=== PATIENT | female | born 1980 | race Caucasian/White ===

== ENCOUNTER 2016-11-16 16:51 | Inpatient (IN) | payer OTHER ==
--- NOTE | ~2016-11-16 | PN ---
Unit #: [id number] #: [id number] Patient: ALISA SOTO [id number] [facility] [address] [place] [address] [id number] I MR#: [id number] NAME: ALISA SOTO ROOM: [facility] Age: 36 Sex: F Admission Date: 11/16/2016 : 1980 Attending Physician: Jo-Ann Ríos M.D. Admitting Physician: Jo-Ann Ríos M.D. Primary Care Physician: Primary Care Physician Doris MENESES NOTES DATE November 17, 2016 DISCUSSION Ms. Soto is a 36-year-old white female, who was seen today and chart was reviewed and the case was discussed with the staff. The patient has been anxious, withdrawn, and rather seclusive to herself. Meanwhile, she has been complaining of persistent depression and anxiety, and feelings of hopelessness. MENTAL STATUS EXAMINATION Young white female, who was casually dressed with fair personal hygiene and appears to be in no acute distress or discomfort. The patient was awake and alert on interaction with intact orientation. Her mood is anxious and depressed with a congruent affect. She reports having suicidal ideations, but denies any homicidal ideations. Her insight and judgment remain slightly impaired. TREATMENT PLAN 1. We will continue her on her current medications and treatment protocol, and will monitor her response to the medications, and make further adjustments as needed. 2. We will continue to followup. Dictated by... Misael Hinton/taylor TD: 11/18/2016 05:24 JOB #: [id number] Unit #: [id number] #: [id number] Patient: ALISA SOTO PROGRESS NOTES Page 1 of 1 X Jo-Ann Ríos MD PROGRESS NOTE
--- NOTE | ~2016-11-16 | PN ---
Unit #: [id number] #: [id number] Patient: ALISA SOTO [id number] [facility] [address] [place] [address] [id number] I MR#: [id number] NAME: ALISA SOTO ROOM: [facility] Age: 36 Sex: F Admission Date: 11/16/2016 : 1980 Attending Physician: Jo-Ann Ríos M.D. Admitting Physician: Jo-Ann Ríos M.D. Primary Care Physician: Primary Care Physician Doris IRENE PROGRESS NOTES DATE 11/19/2016 DISCUSSION Ms. Soto is a 36-year-old white female with mood disorder who was seen today and chart was reviewed and case was discussed with the staff. She has been anxious, withdrawn, rather seclusive to herself though has been cooperative with treatment recommendations and has been taking medications and tolerating them fairly well with no reported side effects. MENTAL STATUS EXAMINATION Young white female who was casually dressed with fair personal hygiene and appears to be in no acute distress or discomfort. She was awake and alert on interaction with intact orientation. Her mood was anxious with congruent affect. She denies any suicidal or homicidal ideations and also denies any auditory or visual hallucinations. Her insight and judgement remains slightly impaired. TREATMENT PLAN 1. We will continue current medications and treatment protocol. Will monitor her response to the medications and make further adjustments as needed. 2. Will continue to follow up. Dictated by... Jo-Ann Ríos M.D. IAA/rikih TD: 11/19/2016 18:22 JOB #: [id number] Unit #: [id number] #: [id number] Patient: ALISA SOTO PROGRESS NOTES Page 1 of 1 X Jo-Ann Ríos MD PROGRESS NOTE
--- NOTE | ~2016-11-16 | PN ---
Unit #: [id number] #: [id number] Patient: ALISA SOTO [id number] [facility] [address] [place] [address] [id number] I MR#: [id number] NAME: ALISA SOTO ROOM: [facility] Age: 36 Sex: F Admission Date: 11/16/2016 : 1980 Attending Physician: Jo-Ann Ríos M.D. Admitting Physician: Jo-Ann Ríos M.D. Primary Care Physician: Primary Care Physician Doris MENESES NOTES DATE 11/18/2016 DISCUSSION Ms. Soto is a 26-year-old white female who was seen today and chart was reviewed and case was discussed with the staff. Patient has been anxious, withdrawn and rather seclusive to herself. She reports persistent depressive symptoms, anxiety and mood swings. Her medication was adjusted yesterday. MENTAL STATUS EXAMINATION Young white female who was casually dressed with fair personal hygiene and appears to be in no acute distress or discomfort. The patient was awake and alert on interaction with intact orientation. Mood was anxious with a congruent affect. Patient denies any suicidal or homicidal ideation. Her insight and judgment remain slightly impaired. TREATMENT PLAN Will continue on current medications and treatment protocol. We will monitor her response to medication and further adjustments as needed. We will continue to follow up. Dictated by... Misael Hinton/jocelin TD: 11/18/2016 12:51 JOB #: [id number] Unit #: [id number] #: [id number] Patient: ALISA SOTO PROGRESS NOTES Page 1 of 1 X Jo-Ann Ríos MD PROGRESS NOTE
--- NOTE | ~2016-11-16 | CO ---
Unit #: [id number] #: [id number] Patient: ALISA LAURENT [id number] [place] [address] [id number] I MR#: [id number] NAME: ALISA LAURENT ROOM: [facility] Age: 36 Sex: F Admission Date: 11/16/2016 : 1980 Attending Physician: Jo-Ann Ríos M.D. Primary Care Physician: Primary Care Physician No Consultation Date: 11/20/2016 CONSULTATION REPORT SUBJECTIVE Alisa is a 36-year-old with history of degenerative disk disease. She has complained of some low back pain. She denies any recent injury and has had no urgency, frequency, or dysuria. OBJECTIVE GENERAL: Alert, well nourished, in no apparent distress. VITAL SIGNS: Blood pressure 130/70, heart rate 80, respirations 16, temperature 98.6. ABDOMEN: Soft, nontender. BACK: Negative CVA tenderness. ASSESSMENT Low back pain, most likely osteoarthritis. PLAN Relafen 500 mg one p.o. b.i.d. Dictated by... Jose AndradeARodolfo. for Misael John/maisha TD: 11/20/2016 23:48 JOB #: [id number] CONSULTATION REPORT Page 1 of 1 X Bailee Goldstein CONSULTATION REPORT
--- NOTE | ~2016-11-16 | DS ---
Unit #: [id number] #: [id number] [facility]: [facility] [id number] [facility] [address] [place] [address] [id number] I MR#: [id number] NAME: ALISA SOTO ROOM: [facility] Age: 36 Sex: F Admission Date: 11/16/2016 : 1980 Discharge Date: Attending Physician: Jo-Ann Ríos M.D. Primary Care Physician: Primary Care Physician No DISCHARGE SUMMARY IDENTIFYING DATA Ms. Soto is a 36-year-old white female, who is a resident of [place], [place] and was self-referred to the hospital on a voluntary basis. DISCHARGE DIAGNOSES Psychiatric: Major depressive disorder, recurrent, moderate, without psychotic features; generalized anxiety disorder. Stressors: Moderate psychosocial stressors. HISTORY OF PRESENT ILLNESS Please see initial psychiatric evaluation for details. PAST PSYCHIATRIC HISTORY Please see initial psychiatric evaluation for details. PAST MEDICAL HISTORY Please see initial psychiatric evaluation for details. HOSPITAL COURSE The patient was admitted to the adult psychiatric unit at [facility] and was oriented to the hospital environment. Routine p.r.n. medications were initiated, and she was started back on her home medications, and Remeron was maintained, and Celexa 20 mg a day was added, and she was closely monitored. She was taking the medications regularly and was tolerating them fairly well and able to show a decent therapeutic response with improvement in depression and anxiety and was denying any further suicidal ideations, intent, or plan and was not seen to be danger to self or anyone else, and as such, it was decided that she will be discharged home and will continue treatment on an outpatient basis. DISCHARGE MEDICATIONS Celexa 20 mg a day for depression and Remeron 15 mg a day for depression. DISCHARGE CONDITION Stable. PROGNOSIS Fair. Dictated by... Jo-Ann Ríos M.D. Unit #: [id number] #: [id number] Patient: ALISA SOTO IAA/modl TD: 11/21/2016 07:12 JOB #: [id number] DISCHARGE SUMMARY Page 1 of 1 X Jo-Ann Ríos MD X DISCHARGE SUMMARY
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
--- NOTE | ~2016-11-16 | PN ---
Unit #: [id number] #: [id number] Patient: ALISA SOTO [id number] [facility] [address] [place] [address] [id number] MR#: [id number] NAME: ALISA SOTO ROOM: [facility] Age: 36 Sex: F Admission Date: 11/16/2016 : 1980 Attending Physician: Jo-Ann Ríos M.D. Admitting Physician: Jo-Ann Ríos M.D. Primary Care Physician: Primary Care Physician Doris MENESES NOTES DATE November 20, 2016 DISCUSSION Ms. Soto is a 36-year-old white female, with mood disorder, who was seen today and chart was reviewed and the case was discussed with the staff. She has been anxious, withdrawn, and rather seclusive to herself. Meanwhile, she has been taking the medications and tolerating them fairly well with no reported side effects. MENTAL STATUS EXAMINATION Young white female, who was casually dressed with fair personal hygiene and appears to be in no acute distress or discomfort. She was awake and alert on interaction with intact orientation. Her mood was anxious with a congruent affect. She denies any suicidal or homicidal ideations. Her insight and judgment remain slightly impaired. TREATMENT PLAN 1. We will continue her on her current medications and treatment protocol, and will monitor her response to the medications, and make further adjustments as needed. 2. We will continue to followup. Dictated by... Misael Hinton/taylor TD: 11/20/2016 11:15 JOB #: [id number] Unit #: [id number] #: [id number] Patient: ALISA SOTO PROGRESS NOTES Page 1 of 1 X Jo-Ann Ríos MD X PROGRESS NOTE
--- NOTE | ~2016-11-16 | HP ---
Unit #: [id number] #: [id number] Patient: ALISA LAURENT [id number] [place] [address] [id number] I MR#: [id number] NAME: ALISA LAURENT ROOM: [facility] Age: 36 Sex: F Admission Date: 11/16/2016 : 1980 Attending Physician: Jo-Ann Ríos M.D. Admitting Physician: Jo-Ann Ríos M.D. Primary Care Physician: Primary Care Physician No HISTORY AND PHYSICAL HISTORY OF PRESENT ILLNESS The patient is a 36-year-old female admitted to [address] [place] [address] on 11/16/2016 for depression. PAST MEDICAL HISTORY 1. Obesity 2. IBS 3. Herniated disc 4. Chiari malformation PAST SURGICAL HISTORY 1. Right ____ 2. Tonsillectomy 3. Uterine fibroid tumor removal SOCIAL HISTORY She is unemployed and homeless. She smokes one pack cigarettes daily. Denies alcohol and drug use. FAMILY HISTORY Medically noncontributory. ALLERGIES 1. Demerol 2. Dimetapp REVIEW OF SYSTEMS CONSTITUTIONAL: No fever or chills. HEENT: Denies any sore throat, ear pain or runny nose. CARDIOVASCULAR: Denies chest pain, irregular heart rhythm or palpitations. CHEST: Denies shortness of breath or cough. No hemoptysis. GASTROINTESTINAL: Denies nausea, vomiting, diarrhea or chronic constipation. ENDOCRINE: Denies history of increased thirst or urination. No recent significant weight loss or gain. GENITOURINARY: Denies dysuria, frequency, or hematuria. SKIN: Denies any rashes. HEMATOLOGIC: Denies history of increased bleeding or bruising. MUSCULOSKELETAL: Denies any hot, swollen joints. No generalized muscle pain. NEUROLOGIC: Denies problems with vision or speech. No frequent, severe headaches. No numbness, tingling or weakness in any extremities. Denies loss of bladder or bowel control. Unit #: [id number] #: [id number] Patient: ALISA LAURENT PHYSICAL EXAMINATION GENERAL: She is awake, alert, oriented, in no apparent distress. VITAL SIGNS: Temperature 97.7, heart rate 98, respirations 18, blood pressure 116/81. HEIGHT: 5 foot 6. WEIGHT: 200 pounds. SKIN: Warm and dry without rash or lesion. HEENT: Normocephalic. TMs not viewed. Oral and nasal passages clear. Conjunctivae clear. Pupils equal, round and reactive to light and accommodation. Extraocular movements intact. NECK: Supple without lymphadenopathy or thyromegaly. HEART: Regular rate and rhythm without murmur. LUNGS: Clear. ABDOMEN: Soft, nontender. : Not done. EXTREMITIES: No evidence of cyanosis, clubbing or edema. Moves all extremities without focal deficit. NEUROLOGICAL: Grossly within normal limits. Cranial Nerves: II: Visual patel are intact. III, IV AND : Extraocular movements are intact. Pupils are equal, round and reactive to light. V: Facial sensation is grossly normal. VII: Facial movements and expression are normal. VIII: Auditory acuity grossly intact. IX, X: Uvula is midline. Phonation is normal. XI: Patient shrugs shoulders and turns head normally. XII: Tongue protrudes in the midline. Sensory and Motor Function: Sensory and motor sensation is grossly normal. Motor: moves all extremities well. Coordination: Gait is normal. Deep Tendon Reflexes: Intact. IMPRESSION 1. Psychiatric admission 2. Obesity 3. IBS 4. Herniated disc 5. Chiari malformation RECOMMENDATIONS PSYCHIATRIC: Per psychiatrist. MEDICAL: I see no contraindications to participating in facility's activities. MEDICAL PROGNOSIS Good. MEDICAL CONDITION Stable. Dictated by... Luz Maria Castanon/tanja Unit #: [id number] #: [id number] Patient: ALISA LAURENT TD: 11/17/2016 21:48 JOB #: [id number] HISTORY AND PHYSICAL Page 1 of 1 X CEASAR YANG APRN X HISTORY AND PHYSICAL
[~2016-11-16 16:51] MED LIST: BENADRYL PO; FLEXERIL10 MG PO; LEVAQUIN PO; LORTAB 7.5-5001 TAB PO; MIRALAX17 G1 PO; PROAIR HFA8.5 GM INH; ROBITUSSIN A-C-S1 ML PO
[2016-11-17 11:03] LABS: BASOPHIL% 0.4 % (0-2.5); EOSINOPHIL# 0.1 X10e3 (0-0.7); EOSINOPHIL% 1.3 % (0.0-7.0); HEMATOCRIT 41.5 % (35.0-45.0); HEMOGLOBIN 13.6 gm/dL (12.0-16.0); LYMPHOCYTE# 2.3 X10e3 (1.0-3.5); MEAN CELL VOLUME 84.1 FL (83-96); MEAN CORPUSCULAR HEMOGLOBIN 27.6 PG (28-34); MEAN CORPUSCULAR HGB CONC 32.8 g/dL (30-36); MEAN PLATELET VOLUME 8.5 FL (6.5-11.5); MONOCYTE# 0.5 X10e3 (0-1.0); MONOCYTE% 5.8 % (3.0-12.0); NEUTROPHIL# 5.1 X10e3 (1.5-7.1); NEUTROPHIL% 63.5 % (40-75); PLATELET COUNT 321 X10e3 (140-420); RED BLOOD COUNT 4.93 X10e (3.90-5.30); RED CELL DISTRIBUTION WIDTH 14.3 % (11.0-15.5)
[2016-11-17 11:16] LABS: DIFF IND NO
[2016-11-17 11:35] LABS: ALBUMIN SERUM 3.5 g/dL (3.5-5.0); BILIRUBIN,TOTAL 0.7 mg/dL (0.2-2.0); CALCIUM SERUM 8.9 mg/dL (8.4-10.2); CREATININE SERUM 0.5 mg/dL (0.6-1.4); GLOM FILT RATE Estimated 122.8 mL/min (>60); PROTEIN TOTAL SERUM 6.4 g/dL (6.0-8.3)
[2016-11-19 12:42] LABS: URINE BILIRUBIN NEG (NEG); URINE BLOOD NEG (NEG); URINE COLOR YELLOW; URINE GLUCOSE NEG (NEG); URINE KETONE NEG (NEG); URINE LEUKOCYTE ESTERASE TRACE (NEG); URINE NITRATE NEG (NEG); URINE PROTEIN NEG (NEG); URINE SPECIFIC GRAVITY 1.016 (1.003-1.035); URINE UROBILINOGEN 0.2 MG/DL (NEG)
[2016-11-19 12:49] LABS: CULTURE INDICATED? YES; U HYALINE CASTS AUWI 0-2 /[LPF]; URINE BACTERIA AUWI 1+ (NEGATIVE); URINE SQUAMOUS EPITHELIAL CELL OCC /[HPF]
[2016-11-19 12:57] LABS: URINE APPEARANCE HAZY
[2016-11-19 18:36] LABS: AMPHETAMINE NEG (NEG); BARBITURATES NEG (NEG); BENZODIAZEPINES NEG (NEG); COCAINE NEG (NEG); MARIJUANA NEG (NEG); OPIATES NEG (NEG); TRICYCLIC ANTIDEPRESSANTS NEG (NEG); U METHADONE NEG (NEG)
== END 2016-11-21 10:00 | disposition home or self-care (01) | DRG 885 ==
LOC: P2L 16:51
PROVIDERS: Psychiatry & Neurology Psychiatry
DX: F33.1 Major depressive disorder, recurrent, moderate (principal); E66.9 Obesity, unspecified; F41.1 Generalized anxiety disorder; Z56.0 Unemployment, unspecified; Z59.0 Homelessness; K58.9 Irritable bowel syndrome, unspecified; M47.896 Other spondylosis, lumbar region
CPT/HCPCS: 80053; 80307; 81003; 85025; 87086

== ENCOUNTER 2017-01-17 15:24 | Emergency (ER) | payer OTHER ==
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
== END 2017-01-17 18:35 | disposition home or self-care (01) ==
LOC: CED 15:24 → CFTX 15:24
DX: S06.0X9A Concussion with loss of consciousness of unspecified duration, initial encounter (principal); S13.4XXA Sprain of ligaments of cervical spine, initial encounter; S23.3XXA Sprain of ligaments of thoracic spine, initial encounter; S33.5XXA Sprain of ligaments of lumbar spine, initial encounter; F17.200 Nicotine dependence, unspecified, uncomplicated; Z88.8 Allergy status to other drugs, medicaments and biological substances; V89.2XXA Person injured in unspecified motor-vehicle accident, traffic, initial encounter; Y92.410 Unspecified street and highway as the place of occurrence of the external cause
CPT/HCPCS: 70450; 72040; 72072; 72100; 84703; 96372; 99284; J1885